=== PATIENT | female | born 1955 | race Caucasian/White ===

== ENCOUNTER 2023-03-29 11:15 | Outpatient (RCR) | payer MEDICARE, BC, SELFPAY | END 2023-06-14 12:21 | disposition home or self-care (01) | PROVIDERS: Visit Provider Family Medicine | DX: M54.2 Cervicalgia (principal); G89.29 Other chronic pain; M62.838 Other muscle spasm; M47.812 Spondylosis without myelopathy or radiculopathy, cervical region; M62.81 Muscle weakness (generalized); M53.82 Other specified dorsopathies, cervical region; Z51.89 Encounter for other specified aftercare | CPT/HCPCS: 97110; 97140; 97161 ==

== ENCOUNTER 2023-10-20 07:54 | Outpatient (CLI) | payer MEDICARE, OTHER, SELFPAY | END 2023-10-20 07:55 | disposition home or self-care (01) | PROVIDERS: Visit Provider Physician Assistant | DX: S81.011A Laceration without foreign body, right knee, initial encounter (principal); W19.XXXA Unspecified fall, initial encounter | CPT/HCPCS: 97597; G0463 ==

== ENCOUNTER 2023-10-27 08:04 | Outpatient (CLI) | payer MEDICARE, OTHER, SELFPAY | END 2023-10-27 08:05 | disposition home or self-care (01) | LOC: WOUND 08:04 | PROVIDERS: Visit Provider Nurse Practitioner Family | DX: S81.011D Laceration without foreign body, right knee, subsequent encounter (principal) | CPT/HCPCS: G0463 ==